=== PATIENT | female | born 1965 | race Caucasian/White ===

== ENCOUNTER 2020-05-29 18:52 | Emergency (ER) | payer BC, OTHER, SELFPAY ==
--- NOTE | 2020-05-29 20:21 | RAD ---
RIGHT KNEE 4 VIEWS: Date: 05/29/2020 HISTORY: Knee injury. FINDINGS: There is some minimal medial compartment joint space narrowing. There is an essentially nondisplaced patellar fracture. Fracture involves the mid and lower pole region of the patella. IMPRESSION: Patellar fracture with joint effusion. POS: JORGE ALBERTO
== END 2020-05-29 20:22 | disposition home or self-care (01) ==
LOC: NAV ERS 18:52
DX: S82.044A Nondisplaced comminuted fracture of right patella, initial encounter for closed fracture (principal); E11.9 Type 2 diabetes mellitus without complications; E78.00 Pure hypercholesterolemia, unspecified; I10 Essential (primary) hypertension; Z79.4 Long term (current) use of insulin; Z79.899 Other long term (current) drug therapy; W19.XXXA Unspecified fall, initial encounter